=== PATIENT | female | born 1985 | race Two or more races ===

== ENCOUNTER 2024-12-02 17:01 | Emergency (ER) | payer OTHER ==
[~2024-12-02] VITALS: Ht 157.5 cm; Wt 93.0 kg
[2024-12-02] MEDS: LIDOCAINE 1%-EPI 1:100,000 20 ML VIAL IJ ONE (17:44)
[2024-12-02] MEDS ORDERED: SULFAMETH/TRIMETH 800/160 MG 1 UDTAB TABLET ONE (18:07)
[2024-12-02] MEDS: SULFAMETH/TRIMETH 800/160 MG 1 UDTAB TABLET PO ONE (18:09)
[2024-12-02] MEDS ORDERED: SULF1TAB48 PO (18:11)
[2024-12-02] MEDS ORDERED: MUPI22OI2 TP (18:11)
[2024-12-02 18:30] VITALS: BP 122/65; TEMP 98; O2SAT 97
== END 2024-12-02 18:30 | disposition home or self-care (01) ==
LOC: ER 17:06
DX: L02.211 Cutaneous abscess of abdominal wall (principal); A63.0 Anogenital (venereal) warts; I10 Essential (primary) hypertension; F32.A Depression, unspecified; Z88.0 Allergy status to penicillin; Z88.1 Allergy status to other antibiotic agents